=== PATIENT | male | born 1995 | race Caucasian/White ===

== ENCOUNTER 2018-01-28 11:38 | Day surgery (SDC) | payer OTHER ==
[~2018-01-28 11:38] MED LIST: RINGERS SOLUTION,LACTATED 1,000 ML IV PRN
[2018-01-28] MEDS ORDERED: PROPOFOL INJ 200 MG/20 ML VIAL IV ONE (14:47)
[2018-01-28] MEDS ORDERED: MIDAZOLAM 2 MG/2 ML INJ ONE ×2 (14:47)
[2018-01-28] MEDS ORDERED: OXYCODONE-ACETAMINOPHEN 5-325 MG TABLET PO PRN ×2 (15:15)
[2018-01-28] MEDS ORDERED: PROMETHAZINE HCL INJ 25 MG/1 ML VIAL IV PRN ×2 (15:15)
[2018-01-28] MEDS ORDERED: FENTANYL CITRATE INJ/PF 100 MCG/2 ML AMPUL IV PRN ×3 (15:15)
[2018-01-28] MEDS ORDERED: MEPERIDINE HCL/PF INJ 25 MG/1 ML DISP.SYRIN IV PRN (15:15)
[2018-01-28] MEDS ORDERED: DIPHENHYDRAMINE HCL 50 MG/ML VIAL IV PRN (15:15)
--- NOTE | 2018-01-28 15:28 | Operative Report ---
Nonrecallable Operative Report DATE OF SURGERY: 01/28/18 PREOPERATIVE DIAGNOSIS: Dysphagia POSTOPERATIVE DIAGNOSIS: 1. Gastritis. 2. Reflux esophagitis. 3. Duodenitis. 4. Hiatal hernia OPERATION: EGD with multiple biopsy SURGEON: DAVID BENSON ANESTHESIA: LMAC TISSUE REMOVED OR ALTERED: 1. Antrum. 2. Duodenum. 3. Distal esophagus COMPLICATIONS: None apparent ESTIMATED BLOOD LOSS: Minimal PROCEDURE: Drains/implants: None. Procedure in detail: After informed consent was obtained, the patient was brought into the operating room and laid in the left lateral decubitus position. The endoscope was passed down the oropharynx, down the esophagus, and into the stomach. The stomach was insufflated with air. Immediately there was noted to be petechiae and inflammation throughout the stomach. The irritation was worst in the antrum. Biopsy was taken in the antrum for pathology. The scope was pushed into the first and second portions of the duodenum. The second portion of the duodenum appeared normal, however the first portion of the duodenum was acutely inflamed. Biopsy was taken at an area of active inflammation. The scope was pulled back into the gastric body. A retroflexion maneuver was performed demonstrating a small hiatal hernia. The scope was pulled into the distal esophagus. There was significant irritation at the distal esophagus, confirming reflux esophagitis. Biopsy was taken in the distal esophagus. Scope was then withdrawn up the remainder of the esophagus. The remainder of the esophagus appeared smooth in contour without masses, lesions, or other abnormalities. The scope was pulled out the oropharynx, and the procedure was concluded. All sponge, instrument, and needle counts were correct 2. Condition: Stable.
--- NOTE | 2018-01-28 15:34 | Discharge Summary ---
Discharge Summary (SDC) - Discharge Final Diagnosis: gastritis, duodenitis, reflux esophagitis Date of Surgery: 01/28/18 Discharge Date: 01/28/18 Condition: Stable Discharge Diet: As Tolerated Respiratory Treatments at Home: Deep Breathing/Coughing, Incentive Spirometer Discharge Activity: Activity As Tolerated Home Care Assistance: None Needed Report the Following to Your Physician Immediately: Shortness of Breath, Nausea , Vomiting, Increase in Pain, Fever over 101 Degrees, Unusual Bleeding
[2018-01-28 17:34] VITALS: BP 109/66
== END 2018-01-28 16:20 | disposition home or self-care (01) ==
LOC: OROUT 11:38
PROVIDERS: ATTEND Surgery
DX: K21.0 Gastro-esophageal reflux disease with esophagitis (principal); K29.50 Unspecified chronic gastritis without bleeding; K29.80 Duodenitis without bleeding; K44.9 Diaphragmatic hernia without obstruction or gangrene
CPT/HCPCS: 43239; 88342 ×2; 88305 ×2; 88312 ×2; J2250; J2704; 731

== ENCOUNTER → 2018-02-16 | Day surgery (SDC) | payer OTHER ==
[~2018-02-16] MED LIST changes: +LIDOCAINE 2% JELLY 5 ML TUBE ONE; -RINGERS SOLUTION,LACTATED 1,000 ML IV PRN
== END ==
LOC: END 08:10
PROVIDERS: ATTEND Surgery
DX: K29.00 Acute gastritis without bleeding (principal); K21.0 Gastro-esophageal reflux disease with esophagitis; K29.80 Duodenitis without bleeding; R13.10 Dysphagia, unspecified
CPT/HCPCS: 91010

== ENCOUNTER 2018-04-05 07:54 | Day surgery (SDC) | payer OTHER ==
[2018-03-29 09:05] LABS: HEMATOCRIT 44.8 % (37.9-51.0); HEMOGLOBIN 15.6 g/dL (13.5-17.0); MEAN CORPUSCULAR HEMOGLOBIN 30.1 pg (27.0-33.4); MEAN CORPUSCULAR HGB CONC 34.8 g/dL (32.0-36.0); MEAN CORPUSCULAR VOLUME 86 fl (80-97); PLATELET COUNT 179 10^3/uL (150-450); RED BLOOD COUNT 5.18 10^6/uL (4.35-5.55); RED CELL DISTRIBUTION WIDTH 13.1 % (11.5-14.0); WHITE BLOOD COUNT 6.5 10^3/uL (4.0-10.5)
[2018-03-29 09:26] LABS: ALANINE AMINOTRANSFERASE 31 U/L (21-72); ALBUMIN 4.8 g/dL (3.5-5.0); ALKALINE PHOSPHATASE 72 U/L (38-126); ANION GAP 15 (5-19); ASPARTATE AMINO TRANSFERASE 26 U/L (17-59); BILIRUBIN,DIRECT 0.2 mg/dL (0.0-0.4); BILIRUBIN,TOTAL 0.7 mg/dL (0.2-1.3); BLOOD UREA NITROGEN 14 mg/dL (7-20); CALCIUM 9.9 mg/dL (8.4-10.2); CARBON DIOXIDE 26 mmol/L (22-30); CHLORIDE 105 mmol/L (98-107); GLUCOSE 88 mg/dL (75-110); POTASSIUM 4.3 mmol/L (3.6-5.0); SODIUM 145.7 mmol/L (137-145); TOTAL PROTEIN 7.7 g/dL (6.3-8.2)
[~2018-04-05 07:54] MED LIST changes: +CEFAZOLIN 2 GM/D5W RTU 2 GM/50 ML RTUPB IV PRN; +LACTATED RINGERS 1000 ML IV PRN; +LIDOCAINE 0.5% INJ-PF (5 MG/ML) 50 ML SDV SUBCUT PRN; -LIDOCAINE 2% JELLY 5 ML TUBE ONE
[2018-04-05] MEDS ORDERED: ROCURONIUM BROMIDE INJ 50 MG/5 ML VIAL IV ONE (07:57)
[2018-04-05] MEDS ORDERED: KETOROLAC TROMETHAMINE 60 MG/2 ML SDV ONE (07:57)
[2018-04-05] MEDS ORDERED: BUPIVACAINE HCL 0.5 % INJ/PF 30 ML SDV ONE (07:58)
[2018-04-05] MEDS ORDERED: DEXAMETHASONE SOD PHOSPHATE INJ 4 MG/1 ML VIAL ONE (09:31)
[2018-04-05] MEDS ORDERED: PROPOFOL INJ 200 MG/20 ML VIAL IV ONE (09:31)
[2018-04-05] MEDS ORDERED: ONDANSETRON HCL INJ/PF 4 MG/2 ML SDV ONE ×2 (09:31→11:39)
[2018-04-05] MEDS ORDERED: FENTANYL CITRATE INJ/PF 250 MCG/5 ML AMPULE ONE ×2 (09:31→11:39)
[2018-04-05] MEDS ORDERED: MIDAZOLAM 2 MG/2 ML INJ ONE (09:31)
[2018-04-05] MEDS ORDERED: ACETAMINOPHEN 1,000 MG/100 ML RTUPB IV ONE (09:32)
[2018-04-05] MEDS ORDERED: DIPHENHYDRAMINE HCL 50 MG/ML VIAL IV PRN (12:09)
[2018-04-05] MEDS ORDERED: FENTANYL CITRATE INJ/PF 100 MCG/2 ML AMPUL IV PRN ×3 (12:09)
[2018-04-05] MEDS ORDERED: MEPERIDINE HCL/PF INJ 25 MG/1 ML DISP.SYRIN IV PRN (12:09)
[2018-04-05] MEDS ORDERED: PROMETHAZINE HCL INJ 25 MG/1 ML VIAL IV PRN ×2 (12:09)
[2018-04-05] MEDS ORDERED: MORPHINE SULFATE 10 MG/ML INJ IV PRN ×2 (12:09→15:26)
[2018-04-05] MEDS ORDERED: MORPHINE SULFATE 10 MG/ML INJ ONE (13:29)
[2018-04-05] MEDS ORDERED: FENTANYL CITRATE INJ/PF 100 MCG/2 ML AMPUL ONE (14:20)
[2018-04-05] MEDS ORDERED: OXYCODONE-ACETAMINOPHEN 5-325 MG TABLET PO PRN (15:26)
[2018-04-05] MEDS ORDERED: ONDANSETRON HCL INJ/PF 4 MG/2 ML SDV IV PRN (15:26)
[2018-04-05] MEDS: DEXTROSE 5%-LACTATED RINGERS 1,000 ML IV PRN (17:27)
[2018-04-06] MEDS: DEXTROSE 5%-LACTATED RINGERS 1,000 ML IV PRN ×3 (01:59→20:55)
[2018-04-06 06:50] LABS: ABSOLUTE MONOCYTES (AUTO) 1.3 10^3/uL (0.1-1.4); ABSOLUTE NEUT (AUTO) 8.9 10^3/uL (1.7-8.2); BASOPHILS % (AUTO) 0.1 % (0-2); EOSINOPHILS % (AUTO) 0.1 % (0-6); HEMATOCRIT 39.8 % (37.9-51.0); HEMOGLOBIN 13.9 g/dL (13.5-17.0); LYMPHOCYTES % (AUTO) 8.8 % (13-45); MEAN CORPUSCULAR HEMOGLOBIN 29.8 pg (27.0-33.4); MEAN CORPUSCULAR HGB CONC 34.9 g/dL (32.0-36.0); MEAN CORPUSCULAR VOLUME 86 fl (80-97); MONOCYTES % (AUTO) 11.4 % (3-13); PLATELET COUNT 154 10^3/uL (150-450); RED BLOOD COUNT 4.66 10^6/uL (4.35-5.55); RED CELL DISTRIBUTION WIDTH 12.9 % (11.5-14.0); SEGMENTED NEUTROPHILS % (AUTO) 79.6 % (42-78); TOTAL CELLS COUNTED % (AUTO) 100 %; WHITE BLOOD COUNT 11.2 10^3/uL (4.0-10.5)
--- NOTE | 2018-04-06 07:37 | PDOC PROGRESS REPORT ---
Subjective Progress Note for:: 04/06/18 Reason For Visit: K44.9 DIAPHRAGMATIC HERNIA WITHOUT OBSTRUCTION OR Physical Exam Vital Signs: Temp Pulse Resp BP Pulse Ox 98.9 F 62 18 128/73 H 99 04/06/18 03:56 04/06/18 03:56 04/06/18 03:56 04/06/18 03:56 04/06/18 03:56 Intake & Output 04/05/18 04/06/18 04/07/18 06:59 06:59 06:59 Intake Total 2673 Output Total 172 Balance 2501 Weight 74 kg 74.3 kg Results Laboratory Results: 04/06/18 06:07 04/06/18 06:07 04/06/18 04/06/18 06:07 06:07 WBC 11.2 H RBC 4.66 Hgb 13.9 Hct 39.8 MCV 86 MCH 29.8 MCHC 34.9 RDW 12.9 Plt Count 154 Seg Neutrophils % 79.6 H Lymphocytes % 8.8 L Monocytes % 11.4 Eosinophils % 0.1 Basophils % 0.1 Absolute Neutrophils 8.9 H Absolute Lymphocytes 1.0 Absolute Monocytes 1.3 Absolute Eosinophils 0.0 Absolute Basophils 0.0 Sodium Cancelled Potassium Cancelled Chloride Cancelled Carbon Dioxide Cancelled Anion Gap Cancelled BUN Cancelled Creatinine Cancelled Est GFR ( Amer) Cancelled Est GFR (Non-Af Amer) Cancelled Glucose Cancelled Calcium Cancelled Total Bilirubin Cancelled AST Cancelled ALT Cancelled Alkaline Phosphatase Cancelled Total Protein Cancelled Albumin Cancelled Assessment & Plan - Plan Summary Plan Summary: This is a 23-year-old male status post hiatal hernia repair with Mercedes fundoplication. The patient had discomfort last night, as well as a very small amount of emesis. The patient is feeling better this morning. He is afebrile. His heart rate and blood pressure are completely normal. His CBC is unremarkable. His CMP is still pending. His chest x-ray is pending. He was made n.p.o. after his episode of emesis. I will restart his clear liquids today and follow his progress. If the patient experiences any dysphagia, emesis , fevers, or other problems he will require an esophagram. Out of bed/ambulate. Pulmonary toilet. Will follow closely.
[2018-04-06 07:59] LABS: ALANINE AMINOTRANSFERASE 59 U/L (21-72); ALBUMIN 4.4 g/dL (3.5-5.0); ALKALINE PHOSPHATASE 63 U/L (38-126); ANION GAP 13 (5-19); ASPARTATE AMINO TRANSFERASE 67 U/L (17-59); BILIRUBIN,DIRECT 0.3 mg/dL (0.0-0.4); BILIRUBIN,TOTAL 1.1 mg/dL (0.2-1.3); BLOOD UREA NITROGEN 14 mg/dL (7-20); CALCIUM 9.6 mg/dL (8.4-10.2); CARBON DIOXIDE 27 mmol/L (22-30); CHLORIDE 106 mmol/L (98-107); GLUCOSE 119 mg/dL (75-110); POTASSIUM 4.4 mmol/L (3.6-5.0); SODIUM 145.9 mmol/L (137-145); TOTAL PROTEIN 7.6 g/dL (6.3-8.2)
--- NOTE | 2018-04-06 08:12 | Operative Report ---
Nonrecallable Operative Report DATE OF SURGERY: 04/05/18 PREOPERATIVE DIAGNOSIS: 1. Hiatal hernia. 2. Persistent reflux despite maximal medical therapy POSTOPERATIVE DIAGNOSIS: Same as above OPERATION: 1. Robot-assisted laparoscopic hiatal hernia repair with mesh. 2. Mercedes fundoplication. 3. EGD. SURGEON: DAVID BENSON 1ST RUBBER BALL FINISHER: NICOLE FAYE ANESTHESIA: GA TISSUE REMOVED OR ALTERED: None COMPLICATIONS: Small mucosal tear within the upper third of the esophagus, presumed from bougie insertion. ESTIMATED BLOOD LOSS: 20 cc PROCEDURE: Drains/implants: 6 x 10 cm Redmon Bio-A hiatal hernia mesh. Procedure in detail: After informed consent was obtained, the patient was laid in the supine position. The area of the abdomen was prepped and draped in a normal sterile fashion. An incision was created superior and lateral to the umbilicus in the left abdomen. Dissection was carried through the subcutaneous tissue using blunt means. The anterior rectus sheath was incised sharply, the rectus muscle was spread bluntly, the posterior sheath was incised sharply, and the abdomen was entered. The balloon trocar was inserted, and pneumoperitoneum was achieved. An 8 mm left upper quadrant robotic trocar, an 8 mm left lateral robotic trocar , a right upper quadrant 8 mm robotic trocar, and a right lateral 5 mm standard trocar were placed under direct laparoscopic visualization. The patient was placed in reverse Trendelenburg position, and the robot was brought over the patient. Liver retractor was placed through the 5 mm trocar and used to retract the left lobe of the liver anteriorly. The robot was docked to the patient appropriately. Instruments were inserted, and I assumed my position at the surgeon's console. Dissection was begun at the pars flaccida. The pars flaccida was divided using Bovie electrocautery. The right rocky was then brought into view. The right rocky was cleaned using a mixture of Bovie electrocautery and blunt dissection. Dissection was carried inferiorly to the confluence of the right and left rocky. The dissection was then carried laterally up the left rocky using blunt dissection and Bovie electrocautery. After the posterior window was started, attention was turned to division of the short gastric arteries. The robotic vessel sealing device was used to divide the short gastric arteries adjacent to the fundus of the stomach. This was carried up to the left rocky of the diaphragm. This was done to adequately free the fundus in preparation for fundoplication. Once the short gastrics were divided, the posterior dissection was completed. Attention was then turned to the anterior dissection. The esophagus was freed from the anterior portion of the hiatus using blunt dissection and electrocautery. Next, dissection into the hiatus was performed. This was done in order to ensure that 2-3 cm of esophagus would lie intra- abdominally. This was done with great care so as not to injure the esophagus. Once the dissection was complete, the esophagus was fully mobilized. There was adequate intra-abdominal esophagus noted. Attention was then turned to insertion of the bougie. A 58 Austrian bougie was chosen and inserted into the oropharynx. The bougie slid easily into the esophagus, however at approximately 30 cm the bougie would not pass any farther. The bougie was at this time removed and a smaller, 56 Austrian bougie was chosen. The 56 Austrian bougie was slid very easily into the esophagus. The bougie passed into the stomach without any difficulty whatsoever. This was confirmed via laparoscopy. Once the 56 Austrian bougie was inserted, crural repair was undertaken. A Blue drain was passed posterior to the esophagus and used for retraction purposes. Esophagus was retracted laterally, and the crural repair was performed. The crura were reapproximated using 2-0 Ethibond suture in figure-of -eight fashion. After the crural repair was completed, a Redmon Bio-A hiatal hernia mesh was inserted into the abdomen. 1 cm was trimmed from the inferior aspect of the mesh, making the total size of the mesh 10 cm x 6 cm. The mesh slid easily over the crural repair. It was sutured to the hiatus using 2-0 Ethibond suture. The mesh was found to lie in good place. Once this was completed attention was turned to the performing of the fundoplication. The fundus was passed posterior to the esophagus and wrapped around the esophagus. This was done without tension. The Mercedes fundoplication was performed with the bougie in place. 3-0 Ethibond sutures were used to secure the fundoplication. The first suture secured posterior fundus to anterior fundus, while incorporating a portion of the esophagus. 3 more sutures were used to approximate posterior fundus to anterior fundus. Once the fundoplication was performed it was found to lie in very good position. There was adequate intra- abdominal esophagus present. The fundus was then sutured to the hiatal hernia mesh in several places to ensure no movement into the thoracic cavity. Attention was then turned to the EGD. The flexible gastroscope was inserted into the oropharynx, and easily into the esophagus. In the superior esophagus there was a small amount of blood and a mucosal ulceration. This was inspected and felt to be small/superficial. I believe this was related to trauma from the bougie insertion. The scope was passed down the esophagus and into the stomach. The hiatus was found to be easily traversed with the gastroscope. A retroflexion maneuver was performed in the stomach confirming an intact fundoplication. There was no obvious trauma to the stomach. Scope was pulled up into the distal esophagus, where no ulcerations or abnormalities could be identified. The scope was brought up the remainder of the esophagus. The ulceration in the proximal esophagus was again examined, and felt to be of little clinical consequence. The scope was removed , and I scrubbed back into the case. The robot at this time was undocked. The liver retractor was removed. The 8 mm and 5 mm trochars were removed. The 12 mm trocar was removed, and pneumoperitoneum was relieved. The 12 mm trocar site fascia was closed using 0 Vicryl suture in [id number] fashion under direct visualization. The overlying skin was closed using 4-0 Vicryl Rapide suture in subcuticular fashion. Dressings were placed, and the procedure was concluded. All sponge, instrument, and needle counts were correct 2. Condition: Stable. Nicole Faye PA-C was scrubbed and present the entirety of the procedure. She assisted with all portions of the procedure including placement of the trochars, exchanging of the robotic instruments, insertion of the mesh, docking of the robot, closure of the fascia, and closure of the skin.
--- NOTE | 2018-04-06 09:03 | RADIOLOGY REPORT (SQ) ---
EXAM DESCRIPTION: CHEST SINGLE VIEW COMPLETED DATE/TIME: 04/06/2018 8:42 am REASON FOR STUDY: pain with inspiration COMPARISON: None. EXAM PARAMETERS: NUMBER OF VIEWS: One view. TECHNIQUE: Single frontal radiographic view of the chest acquired. RADIATION DOSE: NA LIMITATIONS: None. FINDINGS: LUNGS AND PLEURA: No consolidation or effusions. There is fairly extensive subcutaneous e mphysema. No pneumothorax. MEDIASTINUM AND HILAR STRUCTURES: There is pneumomediastinum an pneumopericardium consistent with the patient's recent surgical procedure. HEART AND VASCULAR STRUCTURES: Heart normal in size. Normal vasculature. BONES: No acute findings. HARDWARE: None in the chest. OTHER: No other significant finding. IMPRESSION: Pneumomediastinum an pneumopericardium consistent with recent surgical procedure. No pn eumothorax. COMMENT: This report was called to DAVID BENSON MD at08:54 on 04/06/2018. TECHNICAL DOCUMENTATION: JOB ID: [id number] [employer]- All Rights Reserved Reading location - IP/workstation name: [email or web address]
[2018-04-06] MEDS: BISACODYL 5 MG TABEC PO SCH (09:48)
[2018-04-06] MEDS: PANTOPRAZOLE SODIUM 40 MG VIAL IV SCH (09:48)
[2018-04-06] MEDS: KETOROLAC TROMETHAMINE INJ/PF 30 MG/1 ML SDV IV SCH ×2 (09:48→17:57)
[2018-04-06] MEDS ORDERED: ACETAMINOPHEN SOLN 325 MG/10.15 ML UDCUP PO PRN (12:20)
[2018-04-07] MEDS: KETOROLAC TROMETHAMINE INJ/PF 30 MG/1 ML SDV IV SCH ×2 (01:13→09:44)
[2018-04-07] MEDS: DEXTROSE 5%-LACTATED RINGERS 1,000 ML IV PRN (06:08)
--- NOTE | 2018-04-07 08:46 | PDOC DISCHARGE SUMMARY ---
General - Admit/Disc Date/PCP Discharge Date: 04/07/18 - Discharge Diagnosis (1) Hiatal hernia with gastroesophageal reflux disease and esophagitis Is this a current diagnosis for this admission?: Yes - Additional Information Resuscitation Status: Full Code Discharge Diet: Full Liquids, Other (Comments) - no carbonated beverages Discharge Activity: No Lifting Over 10 Pounds - for 6 weeks after the operation Home Medications: Pantoprazole Sodium 1 tab PO DAILY 03/29/18 History of Present Illness History of Present Illness: CORNELIO GAO is a 23 year old male with a long h/o reflux and a hiatal hernia. He presented for elective repair of his hiatal hernia. He was taken to the OR and his operation was successfully performed. See the operative note for details. The patient was taken to the floor in stable condition. Hospital Course Hospital Course: The patient was taken to the floor in stable condition on 04/05/2018 after his operation. The patient did experience some nausea the night of surgery. It was likely related to his morphine intake that evening. His temperature, heart rate, and blood pressure remained normal throughout his hospital stay. The patient began tolerating clear liquids on postoperative day #1. The evening of postoperative day 1, he was advanced to full liquid diet. The patient tolerated full liquid diet very well. By postop day 2, 04/07/2018, the patient was ambulating, his pain was controlled with oral pain medications, and it was felt that he had reached maximal hospital benefit and was fit for discharge. Physical Exam Vital Signs: Temp Pulse Resp BP Pulse Ox 98.7 F 78 18 131/68 H 98 04/07/18 05:00 04/07/18 05:00 04/07/18 05:00 04/07/18 05:00 04/07/18 05:00 Intake & Output 04/06/18 04/07/18 04/08/18 06:59 06:59 06:59 Intake Total 2673 3725 Output Total 172 Balance 2501 3725 Weight 74 kg 75.9 kg Results Laboratory Results: 04/06/18 06:07 04/06/18 07:29 Impressions: Chest X-Ray 04/06/18 06:00 IMPRESSION: Pneumomediastinum an pneumopericardium consistent with recent surgical procedure. No pneumothorax. Qualifiers - * PATIENT BEING DISCHARGED WITH ANY OF THE FOLLOWING DIAGNOSIS: No Plan Discharge Plan: Discharge home. Diet: Full liquid diet, no carbonated beverages. Activity: No lifting greater than 10 pounds 6 weeks. Follow-up with me at [facility] in 2 weeks. Toradol 10 mg p.o. every 8 hours as needed pain. Use OTC acetaminophen as needed between Toradol doses. Okay to shower. No tub baths or swimming 2 weeks.
[2018-04-07 09:10] VITALS: BP 124/71
[2018-04-07] MEDS: PANTOPRAZOLE SODIUM 40 MG VIAL IV SCH (09:45)
[2018-04-07] MEDS: BISACODYL 5 MG TABEC PO SCH (09:45)
== END 2018-04-07 11:10 | disposition home or self-care (01) ==
LOC: OROUT 07:54 → 2N 15:14 → OROUT 04-07 11:10
PROVIDERS: ATTEND Surgery
DX: K44.9 Diaphragmatic hernia without obstruction or gangrene (principal); K21.0 Gastro-esophageal reflux disease with esophagitis; K29.80 Duodenitis without bleeding; Z79.899 Other long term (current) drug therapy
CPT/HCPCS: 43282; S2900; 36415; 790; 80053; 85025; 85027; C1781; J0131; J0690; J1100; J1885; J2250; J2270; J2405; J2704; J3010; J3490; S0164